=== PATIENT | male | born 1965 | race Caucasian/White ===

== ENCOUNTER 2017-09-24 14:45 | Emergency (ER) | payer BC, OTHER ==
--- NOTE | 2017-09-24 15:25 | RAD ---
RIGHT ELBOW 4 VIEWS: HISTORY: Right elbow pain. FINDINGS: On the lateral view, there is elevation of the anterior and posterior distal humeral fat pads, sugges ting joint fluid. Ring osteophyte is present at the radial head. No displaced fractures are apparen t. On the oblique view, a tiny calcific density, irregular-shaped, projects over the medial aspect of th e radiocapitellar joint. Radiocapitellar alignment is maintained. IMPRESSION: Joint fluid could represent effusion from degenerative changes or hemarthrosis from an acute injury. Cause is not apparent, as no displaced fractures are demonstrated. Possible small intraarticular lo ose body is visualized. If there has been recent trauma, please consider immobilization and orthopedic evaluation. POS: [facility]
== END 2017-09-24 16:10 | disposition home or self-care (01) ==
LOC: ERS 14:45
DX: S42.401A Unspecified fracture of lower end of right humerus, initial encounter for closed fracture (principal); I10 Essential (primary) hypertension; F17.210 Nicotine dependence, cigarettes, uncomplicated; X50.9XXA Other and unspecified overexertion or strenuous movements or postures, initial encounter
CPT/HCPCS: 29105

== ENCOUNTER 2019-03-08 10:08 | Outpatient (CLI) | payer BC ==
--- NOTE | 2019-03-08 10:47 | RAD ---
RIGHT SHOULDER 3 VIEWS: Date: 03/08/19 HISTORY: Shoulder pain. FINDINGS: No fracture or dislocation. AC joint normally aligned. No significant degenerative change at the elena ohumeral joint. IMPRESSION: Unremarkable right shoulder. POS: OFF
--- NOTE | 2019-03-08 10:49 | RAD ---
RIGHT ELBOW 4 VIEWS: Date: 03/08/19 HISTORY: Elbow pain. COMPARISON: 09/24/17. FINDINGS: There are degenerative changes at the elbow with spurring from the coronoid and from the humerus. Spu rring along the lateral condyle of the distal humerus is again noted. Spurring at the capitellum. No joint effusion. No acute fracture. IMPRESSION: Degenerative changes at the right elbow. No acute abnormality. POS: OFF
== END 2019-03-08 10:09 | disposition home or self-care (01) ==
LOC: RAD-FRANK 10:08
PROVIDERS: ATTEND Nurse Practitioner Family
DX: M25.521 Pain in right elbow (principal); M25.511 Pain in right shoulder; G89.29 Other chronic pain; M19.021 Primary osteoarthritis, right elbow

== ENCOUNTER 2019-03-29 08:06 | Outpatient (CLI) | payer BC ==
--- NOTE | 2019-03-29 11:19 | MRI ---
MRI OF THE RIGHT SHOULDER WITHOUT COTNRAST: INDICATION: History of right shoulder pain and concern for rotator cuff tear. COMPARISON: Right shoulder radiograph dated 03/08/2019. FINDINGS: There is a low-grade articular surface partial-thickness tear involving the supraspinatus approximate ly 1.1 cm from the level of the footprint measuring 9 mm in its greatest AP dimension. This involves approximately 1/3 of the tendon thickness. There is mild tendinosis of the supraspinatus and infras pinatus. No definite full-thickness tear is evident. There is abnormal linear T2 signal involving t he anterior glenoid labrum, anterior superior glenoid labrum, superior glenoid labrum, and posterior superior glenoid labrum consistent with a long SLAP tear. There are small paralabral cysts seen along the posterior superior margin of the glenoid on image 11 of series 8. There is some partial thickne ss tear extension into biceps anchor complex seen on image 13 of series 8. The biceps tendon is loca jonas. There is mild tendinosis of the subscapularis. No muscular atrophy is present. There is mild AC joint osteoarthrosis. IMPRESSION: 1. Partial thickness low-grade articular surface tear of the anterior supraspinatus with mild supras pinatus and infraspinatus tendinosis. 2. Superior labrum anterior to posterior tear with some partial thickness extension into the biceps anchor complex. POS: [facility]
== END 2019-03-29 08:07 | disposition home or self-care (01) ==
LOC: BICMRI 08:06
PROVIDERS: ATTEND Orthopaedic Surgery
DX: M75.111 Incomplete rotator cuff tear or rupture of right shoulder, not specified as traumatic (principal); M75.81 Other shoulder lesions, right shoulder

== ENCOUNTER 2021-02-19 12:26 | Outpatient (CLI) | payer BC ==
[2021-02-19] MEDS ORDERED: Iopamidol 370 76% 100 ML VIAL ONE (13:59)
== END 2021-02-19 12:27 | disposition home or self-care (01) ==
LOC: BICCT 12:26
PROVIDERS: ATTEND Nurse Practitioner Family
DX: R51.9 Headache, unspecified (principal); M26.602 Left temporomandibular joint disorder, unspecified; I11.9 Hypertensive heart disease without heart failure; D75.1 Secondary polycythemia; Z82.49 Family history of ischemic heart disease and other diseases of the circulatory system; Z79.899 Other long term (current) drug therapy
CPT/HCPCS: 70470; Q9967

== ENCOUNTER 2023-03-12 09:26 | Outpatient (CLI) | payer BC | END 2023-03-12 09:27 | disposition home or self-care (01) | LOC: SCSMRI 09:26 | PROVIDERS: ATTEND Orthopaedic Surgery | DX: M23.92 Unspecified internal derangement of left knee (principal); M25.462 Effusion, left knee; R60.0 Localized edema; S83.242A Other tear of medial meniscus, current injury, left knee, initial encounter ==

== ENCOUNTER 2023-04-01 09:19 | Day surgery (SDC) | payer BC ==
[2023-03-29 09:18] VITALS: BMI 31.0
[2023-04-01] MEDS ORDERED: Lidocaine 2% PF 5 ML VIAL ONE (10:29)
[2023-04-01] MEDS ORDERED: EPINEPHrine 1 MG/ML AMP ONE (10:29)
[2023-04-01] MEDS ORDERED: Bupivacaine PF 0.5% 30 ML VIAL ONE (10:29)
[2023-04-01] MEDS ORDERED: PROPOFOL 20 ML ONE ×2 (10:29→11:36)
[2023-04-01] MEDS ORDERED: Acetaminophen 500 MG TAB ONE (10:45)
[2023-04-01] MEDS ORDERED: Lidocaine 1% (PF) 30 ML VIAL ONE (11:22)
[2023-04-01] MEDS ORDERED: Sodium Chloride 0.9% 100 ML ONE (11:22)
[2023-04-01] MEDS ORDERED: CEFAZOLIN 2 GM VIAL ONE (11:22)
[2023-04-01] MEDS ORDERED: Lidocaine 1% PF 5 ML VIAL ONE (11:27)
[2023-04-01] MEDS ORDERED: Ondansetron PF 4 MG/2 ML Vial ONE ×2 (11:27→11:50)
[2023-04-01] MEDS ORDERED: Ketorolac Tromethamine 30 MG/ML VIAL ONE ×2 (11:27→11:50)
[2023-04-01] MEDS ORDERED: PROPOFOL 200 MG/20 ML VIAL ONE (11:27)
[2023-04-01] MEDS ORDERED: Bupivacaine HCl 0.5%/Epinephrine 1:200,000/PF 30 ml Vial ONE (11:35)
== END 2023-04-01 15:15 | disposition home or self-care (01) ==
LOC: SDC 09:19
PROVIDERS: ATTEND Orthopaedic Surgery
PROC: 0SBD4ZZ Excision of Left Knee Joint, Percutaneous Endoscopic Approach (ICD-10-PCS; principal; 2023-04-01)
DX: S83.242A Other tear of medial meniscus, current injury, left knee, initial encounter (principal); E78.5 Hyperlipidemia, unspecified; I10 Essential (primary) hypertension; F17.200 Nicotine dependence, unspecified, uncomplicated; Z79.899 Other long term (current) drug therapy; Z88.8 Allergy status to other drugs, medicaments and biological substances; X58.XXXA Exposure to other specified factors, initial encounter
CPT/HCPCS: J0171; J1885; J2001; J2405; J2704; J3490; S0020

== ENCOUNTER 2025-05-10 07:51 | Outpatient (CLI) | payer BC | END 2025-05-10 07:52 | disposition home or self-care (01) | LOC: ULT 07:51 | PROVIDERS: ATTEND Nurse Practitioner Family | DX: R79.89 Other specified abnormal findings of blood chemistry (principal); K76.0 Fatty (change of) liver, not elsewhere classified | CPT/HCPCS: 76700 ==